=== PATIENT | female | born 1955 | race Caucasian/White ===

== ENCOUNTER 2021-09-09 13:10 | Inpatient (IN) ==
[2021-09-09 14:09] LABS: Albumin 3.1 G/DL (3.4-5.0); Bilirubin,Total 0.6 MG/DL (0.20-1.00); Calcium 9.7 MG/DL (8.5-10.1); Total Protein 7.8 G/DL (6.4-8.2)
[2021-09-09 14:11] LABS: Basophils % 0.5 % (0.0-0.8); Eosinophils # 0.1 10*3/uL (0.0-0.87); Eosinophils % 1.2 % (0.00-10.9); Hematocrit 52.5 VOL% (35.7-47.0); Hemoglobin 15.7 GM/DL (12.0-16.0); Immature Granulocytes % 0.5 %; Immature Granulocytes Absolute 0.04 #; Lymphocytes # 1.7 10*3/uL (1.4-4.0); Mean Corpuscular HGB Conc 29.9 GM/DL (32-36); Mean Corpuscular Volume 98.3 FL (87-102); Mean Platelet Volume 11.5 FL (9.6-12.0); Monocytes % 12.6 % (1.7-12.7); NRBC # 0.03 10*3/uL; Neutrophils % 62.2 % (38.7-73.9); Platelet Count 346 T/CUMM (130-400); Red Blood Count 5.34 MC/CUMM (3.8-5.5); Red Cell Distribution Width 15.5 % (9.3-17.3); White Blood Count 7.4 T/CUMM (4-12)
[2021-09-09] MEDS ORDERED: ONDANSETRON 4 MG/2 ML VIAL IV ONE (14:21)
[2021-09-09] MEDS ORDERED: HYDROmorphone 2 MG/1 ML VIAL IV STA (14:21)
[2021-09-09 14:53] LABS: Anisocytosis 1+; Atypical Lymphocytes 1+; Eosinophils 1 % (0-10); Hypochromasia Slight; Lymphocytes 23 % (20-55); Macrocytosis 1+; Platelet Estimate Normal; Polychromasia 1+; Segmented Neutrophils 70 % (50-85); Total Cells Counted 100
[2021-09-09] MEDS ORDERED: hydrALAZINE 20 MG/1 ML VIAL IV STA (15:02)
[2021-09-09] MEDS ORDERED: NALOXONE 0.4 MG/ML VIAL ONE (15:35)
[2021-09-09] MEDS ORDERED: NALOXONE 0.4 MG/ML VIAL IV STA (15:35)
[2021-09-09] MEDS ORDERED: PIPERACILLIN/TAZOBACTAM 3,375 MG in SODIUM CHLORIDE 0.9% 100 ML IV STA ×2 (15:42→15:45)
[2021-09-09 16:09] LABS: ABG Base Excess 10.5 MMOL/L (-2.5-2.5); ABG HCO3 44.8 MMOL/L (20-26); ABG Oxygen Saturation 93.5 % (95-100); ABG PO2 85.4 MM HG (80-95); ABG TCO2 48.5 MMOL/L (23-27)
[2021-09-09] MEDS ORDERED: amLODIPine 5 MG TABLET PO STA (16:20)
[2021-09-09] MEDS ORDERED: FUROSEMIDE 40 MG/4 ML VIAL IM STA (16:21)
[2021-09-09] MEDS ORDERED: ONDANSETRON 4 MG/2 ML VIAL IV PRN (16:22)
[2021-09-09] MEDS ORDERED: guaiFENesin/DM ER 600-30 MG TABLET PO PRN (16:22)
[2021-09-09] MEDS ORDERED: GLUCAGON 1 MG VIAL IM PRN ×2 (16:22)
[2021-09-09] MEDS ORDERED: DEXTROSE 50% 25 GM/50 ML VIAL IV PRN (16:22)
[2021-09-09] MEDS ORDERED: DOCUSATE SODIUM 100 MG CAPSULE PO PRN (16:22)
[2021-09-09] MEDS ORDERED: hydrALAZINE 20 MG/1 ML VIAL IV PRN (16:22)
[2021-09-09] MEDS ORDERED: VANCOMYCIN INJ 1,000 MG in SODIUM CHLORIDE 0.9% 250 ML IV SCH (16:30)
[2021-09-09] MEDS ORDERED: DEXTROSE 50% 25 GM/50 ML SYRINGE IV PRN (16:32)
[2021-09-09] MEDS: INSULIN LISPRO 100 UNIT/ML SUBCUT SCH ×2 (16:55→23:52)
[2021-09-09] MEDS ORDERED: FUROSEMIDE 40 MG/4 ML VIAL IV STA (17:03)
[2021-09-09 17:32] LABS: ABG HCO3 42.2 MMOL/L (20-26); ABG Oxygen Saturation 96.7 % (95-100); ABG PH 7.255 (7.35-7.45); ABG PO2 111.9 MM HG (80-95); ABG TCO2 45.1 MMOL/L (23-27)
[2021-09-09 17:35] LABS: ABG PCO2 97.2 MM HG (35-48)
[2021-09-09] MEDS ORDERED: VANCOMYCIN INJ 2,000 MG in SODIUM CHLORIDE 0.9% 250 ML IV SCH (18:00)
[2021-09-09] MEDS: ENOXAPARIN 40 MG/0.4 ML SYRINGE SUBCUT SCH (19:46)
[2021-09-09] MEDS: ALBUTEROL 2.5 MG/3 ML NEB RESP TX SCH (21:13)
[2021-09-09 21:28] LABS: ABG Base Excess 10.4 MMOL/L (-2.5-2.5); ABG Oxygen Saturation 93.1 % (95-100); ABG PO2 84.8 MM HG (80-95); ABG TCO2 42.9 MMOL/L (23-27)
[2021-09-09] MEDS ORDERED: ETOMIDATE 20 MG/10 ML VIAL IV ONE ×2 (21:44→22:23)
[2021-09-09] MEDS ORDERED: ROCURONIUM 100 MG/10 ML VIAL IV ONE ×2 (21:44→22:23)
[2021-09-09 23:30] LABS: ABG Base Excess 14.4 MMOL/L (-2.5-2.5); ABG HCO3 38.4 MMOL/L (20-26); ABG Oxygen Saturation 97.2 % (95-100); ABG PCO2 50.5 MM HG (35-48); ABG PH 7.512 (7.35-7.45); ABG TCO2 33.5 MMOL/L (23-27)
[2021-09-09] MEDS: SIMVASTATIN 20 MG TABLET PO SCH (23:31)
[2021-09-10] MEDS: ALBUTEROL 2.5 MG/3 ML NEB RESP TX SCH ×4 (00:38→19:20)
[2021-09-10 01:13] LABS: Bilirubin,Urine Negative (Negative); Blood, Urine Small mg/dL (Negative); Glucose,Urine (UA) 50 mg/dL (Negative); Hyaline Casts,Urine 4 /LPF (0-3); Ketones,Urine Negative (Negative); Nitrite,Urine Negative (Negative); Protein,Urine 30 MG/DL; RBC,Urine 1 /HPF (0-4); Squamous Epithelial Cell,Urine Occasional /HPF (0-10); Urine Appearance CLEAR (Clear); Urine Color Straw (Yellow); Urine Specific Gravity 1.013 (1.001-1.035); Urine Urobilinogen < 2.0 EU/DL (<2.0)
[2021-09-10] MEDS: PIPERACILLIN/TAZOBACTAM 3,375 MG in SODIUM CHLORIDE 0.9% 100 ML IV SCH ×3 (01:26→16:39)
[2021-09-10] MEDS: fentaNYL INJ 1,250 MCG in SODIUM CHLORIDE 0.9% 225 ML IV PRN (01:28)
[2021-09-10 03:59] LABS: ABG Base Excess 16.2 MMOL/L (-2.5-2.5); ABG HCO3 40.2 MMOL/L (20-26); ABG Oxygen Saturation 94.9 % (95-100); ABG PCO2 48.5 MM HG (35-48); ABG PH 7.543 (7.35-7.45); ABG PO2 64.9 MM HG (80-95); ABG TCO2 35.1 MMOL/L (23-27)
[2021-09-10] MEDS: LEVOTHYROXINE 75 MCG TABLET PO SCH (06:16)
[2021-09-10 06:36] LABS: Basophils % 0.3 % (0.0-0.8); Eosinophils % 0.1 % (0.00-10.9); Hematocrit 44.2 VOL% (35.7-47.0); Immature Granulocytes % 0.6 %; Immature Granulocytes Absolute 0.06 #; Lymphocytes # 1.3 10*3/uL (1.4-4.0); Lymphocytes % 13.3 % (21.3-54.2); Mean Corpuscular HGB Conc 29.9 GM/DL (32-36); Mean Corpuscular Volume 98.7 FL (87-102); Mean Platelet Volume 11.1 FL (9.6-12.0); Monocytes % 15.6 % (1.7-12.7); NRBC # 0.02 10*3/uL; Neutrophils % 70.1 % (38.7-73.9); Platelet Count 284 T/CUMM (130-400); Red Blood Count 4.48 MC/CUMM (3.8-5.5); White Blood Count 9.7 T/CUMM (4-12)
[2021-09-10 06:37] LABS: Hemoglobin 13.2 GM/DL (12.0-16.0)
[2021-09-10 06:44] LABS: Albumin 2.1 G/DL (3.4-5.0); Bilirubin,Total 0.9 MG/DL (0.20-1.00); Calcium 7.9 MG/DL (8.5-10.1); Osmolality,Calculated 291.7 MOS/KG (273-304); Potassium 3.2 MMOL/L (3.5-5.1); Risk Ratio 2.86; Thyroid Stimulating Hormone 6.05 uIU/ml (0.358-3.74); Total Protein 5.9 G/DL (6.4-8.2)
[2021-09-10 06:54] LABS: Hypochromasia 1+; Lymphocytes 15 % (20-55); Nucleated Red Blood Cells 1 (0-5); Polychromasia Slight; Segmented Neutrophils 71 % (50-85); Target Cells Slight; Total Cells Counted 100
[2021-09-10 06:55] LABS: Macrocytosis Slight; Platelet Estimate Normal
[2021-09-10] MEDS: INSULIN LISPRO 100 UNIT/ML SUBCUT SCH ×4 (07:49→17:15)
[2021-09-10] MEDS: ASPIRIN 325 MG TABLET PER TUBE SCH (08:30)
[2021-09-10] MEDS: POTASSIUM CHLORIDE 20 MEQ PACK PER TUBE SCH ×3 (08:30→16:39)
[2021-09-10] MEDS: CETIRIZINE 10 MG TABLET PO SCH (08:30)
[2021-09-10] MEDS: PANTOPRAZOLE 40 MG VIAL IV SCH (08:31)
[2021-09-10] MEDS: FUROSEMIDE 40 MG/4 ML VIAL IV SCH (08:31)
[2021-09-10] MEDS: amLODIPine 10 MG TABLET PO SCH (08:31)
[2021-09-10] MEDS ORDERED: PANTOPRAZOLE 40 MG TABLET PO SCH (09:00)
[2021-09-10] MEDS ORDERED: ASPIRIN EC 81 MG TABLET PO SCH (09:00)
[2021-09-10] MEDS ORDERED: SPIRONOLACTONE 100 MG TABLET PO SCH (09:00)
[2021-09-10 09:10] LABS: ABG Base Excess 16.8 MMOL/L (-2.5-2.5); ABG HCO3 40.9 MMOL/L (20-26); ABG Oxygen Saturation 96.2 % (95-100); ABG PH 7.445 (7.35-7.45); ABG PO2 80.5 MM HG (80-95); ABG TCO2 38.8 MMOL/L (23-27); Allen Test Positive; Pt O2 Delivery Device Ventilator
[2021-09-10 12:57] LABS: ABG PCO2 120.1 MM HG (35-48)
[2021-09-10] MEDS: methylPREDNISolone SOD SUC 40 MG/1 ML VIAL IV SCH (13:45)
[2021-09-10] MEDS: VANCOMYCIN INJ 2,000 MG in SODIUM CHLORIDE 0.9% 500 ML IV SCH (14:30)
[2021-09-10] MEDS: ENOXAPARIN 40 MG/0.4 ML SYRINGE SUBCUT SCH (16:39)
[2021-09-10] MEDS: SIMVASTATIN 20 MG TABLET PO SCH (20:44)
[2021-09-11] MEDS: VANCOMYCIN INJ 2,000 MG in SODIUM CHLORIDE 0.9% 500 ML IV SCH ×2 (00:16→11:59)
[2021-09-11] MEDS: INSULIN LISPRO 100 UNIT/ML SUBCUT SCH ×4 (00:16→18:12)
[2021-09-11] MEDS: PIPERACILLIN/TAZOBACTAM 3,375 MG in SODIUM CHLORIDE 0.9% 100 ML IV SCH ×2 (00:17→08:03)
[2021-09-11] MEDS: ALBUTEROL 2.5 MG/3 ML NEB RESP TX SCH ×4 (00:54→19:17)
[2021-09-11] MEDS: methylPREDNISolone SOD SUC 40 MG/1 ML VIAL IV SCH ×2 (02:19→14:15)
[2021-09-11 04:15] LABS: ABG HCO3 36.9 MMOL/L (20-26); ABG Oxygen Saturation 97.8 % (95-100); ABG PCO2 65.3 MM HG (35-48); ABG PH 7.409 (7.35-7.45); ABG TCO2 35.8 MMOL/L (23-27)
[2021-09-11 05:09] LABS: Basophils % 0.2 % (0.0-0.8); Hematocrit 44.4 VOL% (35.7-47.0); Hemoglobin 13.5 GM/DL (12.0-16.0); Immature Granulocytes % 0.7 %; Immature Granulocytes Absolute 0.08 #; Lymphocytes # 1.4 10*3/uL (1.4-4.0); Lymphocytes % 12.7 % (21.3-54.2); Mean Corpuscular HGB Conc 30.4 GM/DL (32-36); Mean Corpuscular Volume 96.5 FL (87-102); Mean Platelet Volume 11.3 FL (9.6-12.0); Monocytes % 12.5 % (1.7-12.7); Neutrophils % 73.9 % (38.7-73.9); Platelet Count 327 T/CUMM (130-400); Red Cell Distribution Width 15.3 % (9.3-17.3); White Blood Count 10.7 T/CUMM (4-12)
[2021-09-11 05:17] LABS: Calcium 8.9 MG/DL (8.5-10.1); Osmolality,Calculated 287.1 MOS/KG (273-304); Potassium 3.9 MMOL/L (3.5-5.1)
[2021-09-11] MEDS: LEVOTHYROXINE 75 MCG TABLET PO SCH (06:08)
[2021-09-11] MEDS: fentaNYL INJ 1,250 MCG in SODIUM CHLORIDE 0.9% 225 ML IV PRN (06:08)
[2021-09-11] MEDS: amLODIPine 10 MG TABLET PO SCH (08:26)
[2021-09-11] MEDS: CETIRIZINE 10 MG TABLET PO SCH (08:26)
[2021-09-11] MEDS: ASPIRIN 325 MG TABLET PER TUBE SCH (08:26)
[2021-09-11] MEDS: FUROSEMIDE 40 MG/4 ML VIAL IV SCH (08:26)
[2021-09-11] MEDS: PANTOPRAZOLE 40 MG VIAL IV SCH (08:28)
[2021-09-11] MEDS: CIPROFLOXACIN INJ 400 MG/200 ML PREMIX IV SCH (12:54)
[2021-09-11] MEDS ORDERED: SKIN HEALING OINT (AQUAPHOR) 50 GM TUBE TOP PRN (15:36)
[2021-09-11] MEDS: ENOXAPARIN 40 MG/0.4 ML SYRINGE SUBCUT SCH (17:08)
[2021-09-11] MEDS: SIMVASTATIN 20 MG TABLET PO SCH (20:59)
[2021-09-11] MEDS: MENTHOL/ZINC OXIDE OINT 71 GM JAR TOP SCH (21:02)
[2021-09-12] MEDS: CIPROFLOXACIN INJ 400 MG/200 ML PREMIX IV SCH ×2 (00:22→11:54)
[2021-09-12] MEDS: INSULIN LISPRO 100 UNIT/ML SUBCUT SCH ×4 (00:22→17:48)
[2021-09-12] MEDS: methylPREDNISolone SOD SUC 40 MG/1 ML VIAL IV SCH ×2 (02:47→13:47)
[2021-09-12 03:46] LABS: ABG Base Excess 12.8 MMOL/L (-2.5-2.5); ABG HCO3 36.6 MMOL/L (20-26); ABG Oxygen Saturation 95.6 % (95-100); ABG PCO2 54.1 MM HG (35-48); ABG PH 7.467 (7.35-7.45); ABG PO2 78.3 MM HG (80-95); ABG TCO2 33.9 MMOL/L (23-27)
[2021-09-12 06:45] LABS: Basophils % 0.1 % (0.0-0.8); Hematocrit 45.3 VOL% (35.7-47.0); Immature Granulocytes % 0.6 %; Immature Granulocytes Absolute 0.07 #; Lymphocytes # 0.6 10*3/uL (1.4-4.0); Lymphocytes % 5.1 % (21.3-54.2); Mean Corpuscular HGB Conc 30.9 GM/DL (32-36); Mean Corpuscular Volume 94.4 FL (87-102); Monocytes % 8.5 % (1.7-12.7); Neutrophils % 85.7 % (38.7-73.9); Platelet Count 347 T/CUMM (130-400); White Blood Count 11.2 T/CUMM (4-12)
[2021-09-12] MEDS: LEVOTHYROXINE 75 MCG TABLET PO SCH (06:49)
[2021-09-12 07:13] LABS: Calcium 8.9 MG/DL (8.5-10.1); Osmolality,Calculated 296.8 MOS/KG (273-304); Potassium 3.7 MMOL/L (3.5-5.1)
[2021-09-12] MEDS: ALBUTEROL 2.5 MG/3 ML NEB RESP TX SCH ×4 (07:26→19:50)
[2021-09-12] MEDS: MENTHOL/ZINC OXIDE OINT 71 GM JAR TOP SCH ×2 (08:14→23:43)
[2021-09-12] MEDS: ASPIRIN 325 MG TABLET PER TUBE SCH (08:14)
[2021-09-12] MEDS: FUROSEMIDE 40 MG/4 ML VIAL IV SCH (08:14)
[2021-09-12] MEDS: amLODIPine 10 MG TABLET PO SCH (08:14)
[2021-09-12] MEDS: PANTOPRAZOLE 40 MG VIAL IV SCH (08:14)
[2021-09-12] MEDS: CETIRIZINE 10 MG TABLET PO SCH (08:14)
[2021-09-12] MEDS ORDERED: INFLUENZA VIRUS VACCINE 0.5 ML SYRINGE IM ONE (09:00)
[2021-09-12 10:54] LABS: ABG Base Excess 11.9 MMOL/L (-2.5-2.5); ABG HCO3 35.6 MMOL/L (20-26); ABG Oxygen Saturation 95.1 % (95-100); ABG PCO2 66.1 MM HG (35-48); ABG PH 7.395 (7.35-7.45); ABG PO2 82.5 MM HG (80-95); ABG TCO2 34.8 MMOL/L (23-27)
[2021-09-12] MEDS ORDERED: busPIRone 15 MG TABLET PO PRN (12:41)
[2021-09-12] MEDS: ENOXAPARIN 40 MG/0.4 ML SYRINGE SUBCUT SCH (16:33)
[2021-09-12] MEDS ORDERED: AMITRIPTYLINE 10 MG TABLET PO SCH (21:00)
[2021-09-12] MEDS: SIMVASTATIN 20 MG TABLET PO SCH (21:23)
[2021-09-13] MEDS: INSULIN LISPRO 100 UNIT/ML SUBCUT SCH ×3 (00:42→12:29)
[2021-09-13] MEDS: CIPROFLOXACIN INJ 400 MG/200 ML PREMIX IV SCH ×2 (00:43→13:56)
[2021-09-13] MEDS: methylPREDNISolone SOD SUC 40 MG/1 ML VIAL IV SCH ×2 (02:40→13:56)
[2021-09-13] MEDS: ALBUTEROL 2.5 MG/3 ML NEB RESP TX SCH ×2 (02:50→07:57)
[2021-09-13] MEDS: LEVOTHYROXINE 75 MCG TABLET PO SCH (05:49)
[2021-09-13 05:56] LABS: Calcium 9.2 MG/DL (8.5-10.1); Osmolality,Calculated 281.7 MOS/KG (273-304); Potassium 5.1 MMOL/L (3.5-5.1)
[2021-09-13 07:22] LABS: Basophils % 0.1 % (0.0-0.8); Hematocrit 48.5 VOL% (35.7-47.0); Hemoglobin 14.4 GM/DL (12.0-16.0); Immature Granulocytes % 0.4 %; Immature Granulocytes Absolute 0.05 #; Lymphocytes # 1.3 10*3/uL (1.4-4.0); Lymphocytes % 11.1 % (21.3-54.2); Mean Corpuscular HGB Conc 29.7 GM/DL (32-36); Mean Corpuscular Volume 98.4 FL (87-102); Mean Platelet Volume 11.2 FL (9.6-12.0); Monocytes % 10.9 % (1.7-12.7); Neutrophils % 77.5 % (38.7-73.9); Platelet Count 316 T/CUMM (130-400); Red Blood Count 4.93 MC/CUMM (3.8-5.5); Red Cell Distribution Width 15.1 % (9.3-17.3); White Blood Count 11.3 T/CUMM (4-12)
[2021-09-13] MEDS: CETIRIZINE 10 MG TABLET PO SCH (09:38)
[2021-09-13] MEDS: ASPIRIN 325 MG TABLET PER TUBE SCH (09:38)
[2021-09-13] MEDS: PANTOPRAZOLE 40 MG VIAL IV SCH (09:38)
[2021-09-13] MEDS: amLODIPine 10 MG TABLET PO SCH (09:38)
[2021-09-13] MEDS: FUROSEMIDE 40 MG/4 ML VIAL IV SCH (09:41)
[2021-09-13] MEDS: MENTHOL/ZINC OXIDE OINT 71 GM JAR TOP SCH (09:45)
[2021-09-13 16:51] VITALS: BP 139/77
[2021-09-13] MEDS: ENOXAPARIN 40 MG/0.4 ML SYRINGE SUBCUT SCH (17:18)
== END 2021-09-13 17:55 | disposition home health service (06) | DRG 208 ==
LOC: EDUNIT# → N.ED 13:10 → SUATTDRO 16:22 → N.EDINP 16:22 → N.TELES 19:11 → N.ICU 22:02
PROVIDERS: ADMIT Internal Medicine; ATTEND Internal Medicine

== ENCOUNTER 2021-09-17 17:47 | Inpatient (IN) ==
[2021-09-17] MEDS ORDERED: ALBUTEROL/IPRATROPIUM 3 ML NEB RESP TX STA (18:16)
[2021-09-17] MEDS ORDERED: ONDANSETRON 4 MG/2 ML VIAL IV STA (18:16)
[2021-09-17] MEDS ORDERED: FUROSEMIDE 100 MG/10 ML VIAL IV STA (18:16)
[2021-09-17] MEDS ORDERED: methylPREDNISolone SOD SUC 125 MG/2 ML VIAL IV STA (18:16)
[2021-09-17] MEDS ORDERED: MORPHINE 2 MG/1 ML SYRINGE IV STA (18:16)
[2021-09-17 19:12] LABS: INR 1.1; PT Patient Result 11.7 SECS (10.5-12.0)
[2021-09-17 19:17] LABS: Albumin 3.2 G/DL (3.4-5.0); Bilirubin,Total 0.9 MG/DL (0.20-1.00); Calcium 10.1 MG/DL (8.5-10.1); Potassium 5.3 MMOL/L (3.5-5.1); Total Protein 8.1 G/DL (6.4-8.2)
[2021-09-17 19:19] LABS: Basophils % 0.2 % (0.0-0.8); Eosinophils % 0.2 % (0.00-10.9); Immature Granulocytes Absolute 0.08 #; Lymphocytes # 1.2 10*3/uL (1.4-4.0); Lymphocytes % 15.1 % (21.3-54.2); Mean Corpuscular HGB Conc 28.5 GM/DL (32-36); Mean Corpuscular Volume 101.1 FL (87-102); Mean Platelet Volume 11.7 FL (9.6-12.0); Neutrophils % 76.5 % (38.7-73.9); Platelet Count 289 T/CUMM (130-400); Red Blood Count 5.34 MC/CUMM (3.8-5.5); Red Cell Distribution Width 14.6 % (9.3-17.3); White Blood Count 8.1 T/CUMM (4-12)
[2021-09-17 19:20] LABS: Hemoglobin 15.4 GM/DL (12.0-16.0)
[2021-09-17 20:15] LABS: ABG HCO3 34.7 MMOL/L (20-26); ABG Oxygen Saturation 95.9 % (95-100); ABG PH 7.221 (7.35-7.45); ABG PO2 92.1 MM HG (80-95); ABG TCO2 40.4 MMOL/L (23-27)
[2021-09-17 21:22] LABS: ABG Base Excess 12.3 MMOL/L (-2.5-2.5); ABG HCO3 36.1 MMOL/L (20-26); ABG Oxygen Saturation 94.8 % (95-100); ABG PO2 85.8 MM HG (80-95); ABG TCO2 43.8 MMOL/L (23-27)
[2021-09-17 21:27] LABS: ABG PH 7.184 (7.35-7.45)
[2021-09-17] MEDS ORDERED: ACETAMINOPHEN 325 MG TABLET PER TUBE PRN (21:34)
[2021-09-17] MEDS ORDERED: ONDANSETRON 4 MG/2 ML VIAL IV PRN (21:34)
[2021-09-17] MEDS ORDERED: VECURONIUM 10 MG VIAL IV ONE (21:44)
[2021-09-17] MEDS ORDERED: ETOMIDATE 20 MG/10 ML VIAL IV ONE (21:44)
[2021-09-17] MEDS ORDERED: LEVOFLOXACIN INJ 750 MG/150 ML PREMIX IV SCH (22:00)
[2021-09-17 22:29] LABS: Bilirubin,Urine Negative (Negative); Blood, Urine Small mg/dL (Negative); Glucose,Urine (UA) Negative (Negative); Hyaline Casts,Urine 41 /LPF (0-3); Ketones,Urine Negative (Negative); Mucus,Urine Occasional /LPF (Occasional); Nitrite,Urine Negative (Negative); Protein,Urine Negative; RBC,Urine 1 /HPF (0-4); Urine Appearance CLEAR (Clear); Urine Color Straw (Yellow); Urine Specific Gravity 1.006 (1.001-1.035); Urine Urobilinogen < 2.0 EU/DL (<2.0)
[2021-09-17] MEDS ORDERED: ETOMIDATE 20 MG/10 ML VIAL IV STA (22:43)
[2021-09-17] MEDS ORDERED: VECURONIUM 10 MG VIAL IV STA (22:45)
[2021-09-17] MEDS: LACTATED RINGERS 1,000 ML IV SCH (23:38)
[2021-09-17] MEDS: MIDAZOLAM 100 MG in SODIUM CHLORIDE 0.9% 80 ML IV PRN (23:38)
[2021-09-17 23:44] LABS: ABG Base Excess 15.7 MMOL/L (-2.5-2.5); ABG HCO3 39.8 MMOL/L (20-26); ABG Oxygen Saturation 98.6 % (95-100); ABG PH 7.395 (7.35-7.45); ABG TCO2 38.9 MMOL/L (23-27)
[2021-09-17 23:45] LABS: ABG PCO2 74.7 MM HG (35-48)
[2021-09-18] MEDS: ALBUTEROL 2.5 MG/3 ML NEB RESP TX SCH ×4 (01:18→19:08)
[2021-09-18] MEDS: ENOXAPARIN 40 MG/0.4 ML SYRINGE SUBCUT SCH ×2 (01:35→21:18)
[2021-09-18] MEDS: PANTOPRAZOLE 40 MG VIAL IV SCH ×2 (01:35→21:53)
[2021-09-18] MEDS: MEROPENEM 500 MG in SODIUM CHLORIDE 0.9% 100 ML IV SCH ×4 (03:33→21:47)
[2021-09-18 04:20] LABS: ABG Base Excess 17.4 MMOL/L (-2.5-2.5); ABG HCO3 41.7 MMOL/L (20-26); ABG Oxygen Saturation 99.2 % (95-100); ABG PCO2 48.4 MM HG (35-48); ABG PH 7.557 (7.35-7.45); ABG TCO2 36.1 MMOL/L (23-27)
[2021-09-18 05:39] LABS: Hematocrit 55.5 VOL% (35.7-47.0); Hemoglobin 14.9 GM/DL (12.0-16.0); Immature Granulocytes % 0.6 %; Immature Granulocytes Absolute 0.04 #; Lymphocytes # 0.4 10*3/uL (1.4-4.0); Lymphocytes % 6.4 % (21.3-54.2); Mean Corpuscular HGB Conc 26.8 GM/DL (32-36); Mean Corpuscular Volume 114.2 FL (87-102); Mean Platelet Volume 11.1 FL (9.6-12.0); Monocytes % 4.8 % (1.7-12.7); Neutrophils % 88.2 % (38.7-73.9); Platelet Count 297 T/CUMM (130-400); Red Blood Count 4.86 MC/CUMM (3.8-5.5); White Blood Count 6.5 T/CUMM (4-12)
[2021-09-18] MEDS: LEVOFLOXACIN INJ 750 MG/150 ML PREMIX IV SCH (05:39)
[2021-09-18 05:45] LABS: Albumin 2.7 G/DL (3.4-5.0); Bilirubin,Total 0.9 MG/DL (0.20-1.00); Calcium 10.2 MG/DL (8.5-10.1); High Sensitive Troponin I* 18.2 ng/L (0-54); Osmolality,Calculated 286.5 MOS/KG (273-304); Potassium 4.1 MMOL/L (3.5-5.1); Total Protein 7.2 G/DL (6.4-8.2)
[2021-09-18 05:48] LABS: Risk Ratio 2.21; Thyroid Stimulating Hormone 2.29 uIU/ml (0.358-3.74); VLDL Cholesterol 17.4 MG/DL
[2021-09-18 05:56] LABS: Hypochromia 1+; Macrocytosis Slight
[2021-09-18] MEDS: LEVOTHYROXINE 150 MCG TABLET PER TUBE SCH (05:56)
[2021-09-18 05:57] LABS: Stomatocytes Slight
[2021-09-18] MEDS ORDERED: GLUCAGON 1 MG VIAL IM PRN ×2 (08:15→12:34)
[2021-09-18] MEDS ORDERED: DEXTROSE 50% 25 GM/50 ML SYRINGE IV PRN (08:19)
[2021-09-18] MEDS: LACTATED RINGERS 1,000 ML IV SCH ×2 (09:40→19:09)
[2021-09-18] MEDS: amLODIPine 10 MG TABLET PER TUBE SCH (10:27)
[2021-09-18] MEDS: busPIRone 15 MG TABLET PER TUBE SCH ×3 (10:27→21:17)
[2021-09-18] MEDS: PREGABALIN 100 MG CAPSULE PO SCH ×3 (10:27→21:30)
[2021-09-18] MEDS: methylPREDNISolone SOD SUC 40 MG/1 ML VIAL IV SCH ×2 (10:27→21:18)
[2021-09-18] MEDS ORDERED: DEXTROSE 50% 25 GM/50 ML VIAL IV PRN (12:34)
[2021-09-18] MEDS: INSULIN LISPRO 100 UNIT/ML SUBCUT SCH ×3 (12:57→23:37)
[2021-09-18] MEDS: LACTULOSE 20 GM/30 ML UDCUP PO SCH ×2 (15:00→21:17)
[2021-09-18] MEDS ORDERED: SKIN HEALING OINT (AQUAPHOR) 50 GM TUBE TOP PRN (15:16)
[2021-09-18] MEDS: MIDAZOLAM 100 MG in SODIUM CHLORIDE 0.9% 80 ML IV PRN (18:00)
[2021-09-19] MEDS: cloNIDine 0.1 MG TABLET PO PRN
[2021-09-19] MEDS: MEROPENEM 500 MG in SODIUM CHLORIDE 0.9% 100 ML IV SCH ×4 (04:10→21:18)
[2021-09-19 04:11] LABS: Basophils % 0.1 % (0.0-0.8); Hematocrit 49.2 VOL% (35.7-47.0); Hemoglobin 15.3 GM/DL (12.0-16.0); Immature Granulocytes % 0.6 %; Immature Granulocytes Absolute 0.05 #; Lymphocytes # 0.4 10*3/uL (1.4-4.0); Lymphocytes % 4.7 % (21.3-54.2); Mean Corpuscular HGB Conc 31.1 GM/DL (32-36); Mean Corpuscular Volume 93.2 FL (87-102); Mean Platelet Volume 11.1 FL (9.6-12.0); Monocytes % 7.3 % (1.7-12.7); Neutrophils % 87.3 % (38.7-73.9); Platelet Count 300 T/CUMM (130-400); Red Blood Count 5.28 MC/CUMM (3.8-5.5); Red Cell Distribution Width 14.6 % (9.3-17.3)
[2021-09-19 04:25] LABS: ABG Base Excess 11.8 MMOL/L (-2.5-2.5); ABG HCO3 35.6 MMOL/L (20-26); ABG Oxygen Saturation 97.8 % (95-100); ABG PCO2 46.8 MM HG (35-48); ABG PH 7.506 (7.35-7.45); ABG PO2 92.5 MM HG (80-95)
[2021-09-19 04:30] LABS: Band Neutrophils 1 % (0-10); Lymphocytes 5 % (20-55); Platelet Estimate Adequate; Segmented Neutrophils 92 % (50-85); Total Cells Counted 100
[2021-09-19 04:31] LABS: Calcium 9.3 MG/DL (8.5-10.1); Osmolality,Calculated 286.4 MOS/KG (273-304); Potassium 3.7 MMOL/L (3.5-5.1)
[2021-09-19] MEDS: LEVOTHYROXINE 150 MCG TABLET PER TUBE SCH (05:56)
[2021-09-19] MEDS: LEVOFLOXACIN INJ 750 MG/150 ML PREMIX IV SCH (05:56)
[2021-09-19] MEDS: INSULIN LISPRO 100 UNIT/ML SUBCUT SCH ×4 (05:56→23:39)
[2021-09-19] MEDS: ALBUTEROL 2.5 MG/3 ML NEB RESP TX SCH ×4 (07:48→19:42)
[2021-09-19] MEDS: amLODIPine 10 MG TABLET PER TUBE SCH (08:47)
[2021-09-19] MEDS: methylPREDNISolone SOD SUC 40 MG/1 ML VIAL IV SCH ×2 (08:47→21:18)
[2021-09-19] MEDS: LACTULOSE 20 GM/30 ML UDCUP PO SCH (08:47)
[2021-09-19] MEDS: busPIRone 15 MG TABLET PER TUBE SCH ×3 (08:48→21:18)
[2021-09-19] MEDS: PREGABALIN 100 MG CAPSULE PO SCH ×3 (09:16→22:29)
[2021-09-19] MEDS: MIDAZOLAM 100 MG in SODIUM CHLORIDE 0.9% 80 ML IV PRN (16:01)
[2021-09-19] MEDS: PANTOPRAZOLE 40 MG VIAL IV SCH (21:17)
[2021-09-19] MEDS: ENOXAPARIN 40 MG/0.4 ML SYRINGE SUBCUT SCH (21:18)
[2021-09-20] MEDS: ALBUTEROL 2.5 MG/3 ML NEB RESP TX SCH ×4 (02:00→19:00)
[2021-09-20 04:12] LABS: ABG Base Excess 9.7 MMOL/L (-2.5-2.5); ABG HCO3 33.3 MMOL/L (20-26); ABG PO2 81.4 MM HG (80-95); ABG TCO2 33.2 MMOL/L (23-27)
[2021-09-20 04:34] LABS: ABG PCO2 69.1 MM HG (35-48)
[2021-09-20] MEDS: MEROPENEM 500 MG in SODIUM CHLORIDE 0.9% 100 ML IV SCH ×4 (04:59→21:07)
[2021-09-20 05:13] LABS: Basophils % 0.1 % (0.0-0.8); Hematocrit 49.6 VOL% (35.7-47.0); Hemoglobin 15.3 GM/DL (12.0-16.0); Immature Granulocytes % 0.5 %; Immature Granulocytes Absolute 0.04 #; Lymphocytes # 0.4 10*3/uL (1.4-4.0); Mean Corpuscular HGB Conc 30.8 GM/DL (32-36); Mean Corpuscular Volume 95.2 FL (87-102); Mean Platelet Volume 11.2 FL (9.6-12.0); Monocytes % 7.8 % (1.7-12.7); Neutrophils % 86.6 % (38.7-73.9); Platelet Count 274 T/CUMM (130-400); Red Blood Count 5.21 MC/CUMM (3.8-5.5); Red Cell Distribution Width 15.1 % (9.3-17.3); White Blood Count 7.7 T/CUMM (4-12)
[2021-09-20] MEDS: LEVOFLOXACIN INJ 750 MG/150 ML PREMIX IV SCH (05:36)
[2021-09-20 05:42] LABS: Osmolality,Calculated 288.3 MOS/KG (273-304); Potassium 4.1 MMOL/L (3.5-5.1)
[2021-09-20] MEDS: INSULIN LISPRO 100 UNIT/ML SUBCUT SCH ×3 (06:02→18:18)
[2021-09-20] MEDS: LEVOTHYROXINE 150 MCG TABLET PER TUBE SCH (06:02)
[2021-09-20] MEDS: busPIRone 15 MG TABLET PER TUBE SCH ×3 (08:39→21:06)
[2021-09-20] MEDS: PREGABALIN 100 MG CAPSULE PO SCH ×3 (08:40→21:07)
[2021-09-20] MEDS: methylPREDNISolone SOD SUC 40 MG/1 ML VIAL IV SCH ×2 (08:40→21:07)
[2021-09-20] MEDS: amLODIPine 10 MG TABLET PER TUBE SCH (08:40)
[2021-09-20] MEDS ORDERED: LACTULOSE 20 GM/30 ML UDCUP PO SCH (09:00)
[2021-09-20] MEDS: MIDAZOLAM 100 MG in SODIUM CHLORIDE 0.9% 80 ML IV PRN (13:18)
[2021-09-20] MEDS: DEXMEDETOMIDINE 200 MCG in SODIUM CHLORIDE 0.9% 48 ML IV PRN ×2 (15:19→21:46)
[2021-09-20] MEDS: ENOXAPARIN 40 MG/0.4 ML SYRINGE SUBCUT SCH (21:07)
[2021-09-20] MEDS: PANTOPRAZOLE 40 MG VIAL IV SCH (21:07)
[2021-09-21] MEDS: ALBUTEROL 2.5 MG/3 ML NEB RESP TX SCH ×4 (00:11→19:55)
[2021-09-21] MEDS: INSULIN LISPRO 100 UNIT/ML SUBCUT SCH ×4 (00:46→18:16)
[2021-09-21 04:15] LABS: ABG Base Excess 11.7 MMOL/L (-2.5-2.5); ABG HCO3 39.3 MMOL/L (20-26); ABG Oxygen Saturation 95.5 % (95-100); ABG PCO2 61.6 MM HG (35-48); ABG PH 7.423 (7.35-7.45); ABG PO2 77.8 MM HG (80-95); ABG TCO2 41.2 MMOL/L (23-27); Allen Test Positive; Pt O2 Delivery Device Ventilator
[2021-09-21] MEDS: MEROPENEM 500 MG in SODIUM CHLORIDE 0.9% 100 ML IV SCH ×4 (04:30→22:17)
[2021-09-21 04:38] LABS: Hematocrit 48.8 VOL% (35.7-47.0); Immature Granulocytes % 0.5 %; Immature Granulocytes Absolute 0.03 #; Lymphocytes # 0.4 10*3/uL (1.4-4.0); Lymphocytes % 6.4 % (21.3-54.2); Mean Corpuscular HGB Conc 30.7 GM/DL (32-36); Mean Corpuscular Volume 93.8 FL (87-102); Mean Platelet Volume 11.5 FL (9.6-12.0); Monocytes % 8.9 % (1.7-12.7); Neutrophils % 84.2 % (38.7-73.9); Platelet Count 227 T/CUMM (130-400); White Blood Count 6.4 T/CUMM (4-12)
[2021-09-21 05:05] LABS: Calcium 9.2 MG/DL (8.5-10.1); Potassium 4.4 MMOL/L (3.5-5.1)
[2021-09-21 05:12] LABS: Osmolality,Calculated 284.7 MOS/KG (273-304)
[2021-09-21] MEDS: LEVOFLOXACIN INJ 750 MG/150 ML PREMIX IV SCH (05:57)
[2021-09-21] MEDS: LEVOTHYROXINE 150 MCG TABLET PER TUBE SCH (05:58)
[2021-09-21] MEDS: DEXMEDETOMIDINE 200 MCG in SODIUM CHLORIDE 0.9% 48 ML IV PRN (06:07)
[2021-09-21] MEDS: busPIRone 15 MG TABLET PER TUBE SCH ×3 (11:44→22:00)
[2021-09-21] MEDS: PREGABALIN 100 MG CAPSULE PO SCH ×3 (11:45→22:07)
[2021-09-21] MEDS: methylPREDNISolone SOD SUC 40 MG/1 ML VIAL IV SCH ×2 (11:45→22:00)
[2021-09-21] MEDS: LACTULOSE 20 GM/30 ML UDCUP PER TUBE SCH (11:45)
[2021-09-21] MEDS: amLODIPine 10 MG TABLET PER TUBE SCH (11:45)
[2021-09-21 12:32] LABS: ABG Base Excess 11.6 MMOL/L (-2.5-2.5); ABG HCO3 40.3 MMOL/L (20-26); ABG Oxygen Saturation 95.8 % (95-100); ABG PH 7.381 (7.35-7.45); ABG PO2 83.2 MM HG (80-95); ABG TCO2 42.5 MMOL/L (23-27); Allen Test Positive; Pt O2 Delivery Device Ventilator
[2021-09-21 12:34] LABS: ABG PCO2 69.6 MM HG (35-48)
[2021-09-21] MEDS: DEXMEDETOMIDINE 400 MCG in SODIUM CHLORIDE 0.9% 96 ML IV PRN (14:21)
[2021-09-21] MEDS: ENOXAPARIN 40 MG/0.4 ML SYRINGE SUBCUT SCH (22:12)
[2021-09-21] MEDS: PANTOPRAZOLE 40 MG VIAL IV SCH (22:13)
[2021-09-22] MEDS: ALBUTEROL 2.5 MG/3 ML NEB RESP TX SCH ×4 (00:29→20:36)
[2021-09-22] MEDS: INSULIN LISPRO 100 UNIT/ML SUBCUT SCH ×4 (00:35→17:24)
[2021-09-22 04:39] LABS: Basophils % 0.2 % (0.0-0.8); Hematocrit 51.1 VOL% (35.7-47.0); Hemoglobin 15.7 GM/DL (12.0-16.0); Immature Granulocytes % 0.5 %; Immature Granulocytes Absolute 0.03 #; Lymphocytes # 0.4 10*3/uL (1.4-4.0); Mean Corpuscular HGB Conc 30.7 GM/DL (32-36); Mean Corpuscular Volume 94.8 FL (87-102); Monocytes % 5.9 % (1.7-12.7); Neutrophils % 86.4 % (38.7-73.9); Platelet Count 206 T/CUMM (130-400); Red Blood Count 5.39 MC/CUMM (3.8-5.5); Red Cell Distribution Width 14.8 % (9.3-17.3); White Blood Count 6.1 T/CUMM (4-12)
[2021-09-22 04:42] LABS: Calcium 9.2 MG/DL (8.5-10.1); Osmolality,Calculated 294.3 MOS/KG (273-304); Potassium 4.9 MMOL/L (3.5-5.1)
[2021-09-22 04:54] LABS: ABG Base Excess 11.2 MMOL/L (-2.5-2.5); ABG Oxygen Saturation 97.1 % (95-100); ABG PCO2 63.9 MM HG (35-48); ABG PH 7.403 (7.35-7.45); ABG PO2 91.4 MM HG (80-95); ABG TCO2 33.4 MMOL/L (23-27)
[2021-09-22] MEDS: DEXMEDETOMIDINE 400 MCG in SODIUM CHLORIDE 0.9% 96 ML IV PRN (05:41)
[2021-09-22] MEDS: MEROPENEM 500 MG in SODIUM CHLORIDE 0.9% 100 ML IV SCH ×4 (06:30→22:37)
[2021-09-22 07:00] LABS: Hypochromia 1+; Platelet Estimate Normal; Stomatocytes Slight
[2021-09-22] MEDS: LEVOFLOXACIN INJ 750 MG/150 ML PREMIX IV SCH (07:42)
[2021-09-22] MEDS: LEVOTHYROXINE 150 MCG TABLET PER TUBE SCH (07:43)
[2021-09-22] MEDS: busPIRone 15 MG TABLET PER TUBE SCH ×3 (08:46→23:10)
[2021-09-22] MEDS: LACTULOSE 20 GM/30 ML UDCUP PER TUBE SCH (08:46)
[2021-09-22] MEDS: amLODIPine 10 MG TABLET PER TUBE SCH (08:46)
[2021-09-22] MEDS: methylPREDNISolone SOD SUC 40 MG/1 ML VIAL IV SCH ×2 (08:47→22:28)
[2021-09-22] MEDS: PREGABALIN 100 MG CAPSULE PO SCH ×3 (08:49→23:09)
[2021-09-22 13:42] LABS: ABG Base Excess 10.6 MMOL/L (-2.5-2.5); ABG HCO3 34.3 MMOL/L (20-26); ABG Oxygen Saturation 94.4 % (95-100); ABG PCO2 67.7 MM HG (35-48); ABG PH 7.378 (7.35-7.45); ABG PO2 74.4 MM HG (80-95); ABG TCO2 33.6 MMOL/L (23-27); Allen Test Positive; Pt O2 Delivery Device Ventilator
[2021-09-22] MEDS: cloNIDine 0.1 MG TABLET PO PRN (14:48)
[2021-09-22] MEDS: MORPHINE 2 MG/1 ML SYRINGE IV PRN ×2 (15:15→23:21)
[2021-09-22] MEDS: DORNASE ALFA 2.5 MG/2.5 ML VIAL RESP TX SCH (20:36)
[2021-09-22] MEDS: PANTOPRAZOLE 40 MG VIAL IV SCH (22:35)
[2021-09-22] MEDS: ENOXAPARIN 40 MG/0.4 ML SYRINGE SUBCUT SCH (22:37)
[2021-09-23] MEDS: ALBUTEROL 2.5 MG/3 ML NEB RESP TX SCH ×4 (01:28→23:30)
[2021-09-23] MEDS: INSULIN LISPRO 100 UNIT/ML SUBCUT SCH ×5 (02:12→21:15)
[2021-09-23 04:41] LABS: ABG Base Excess 13.3 MMOL/L (-2.5-2.5); ABG HCO3 40.1 MMOL/L (20-26); ABG Oxygen Saturation 91.6 % (95-100); ABG PCO2 57.8 MM HG (35-48); ABG PH 7.459 (7.35-7.45); ABG PO2 58.8 MM HG (80-95); ABG TCO2 41.9 MMOL/L (23-27)
[2021-09-23 05:50] LABS: Basophils % 0.1 % (0.0-0.8); Hematocrit 47.5 VOL% (35.7-47.0); Hemoglobin 14.6 GM/DL (12.0-16.0); Immature Granulocytes % 0.4 %; Immature Granulocytes Absolute 0.03 #; Lymphocytes # 0.6 10*3/uL (1.4-4.0); Lymphocytes % 8.2 % (21.3-54.2); Mean Corpuscular HGB Conc 30.7 GM/DL (32-36); Mean Corpuscular Volume 94.2 FL (87-102); Mean Platelet Volume 12.4 FL (9.6-12.0); Monocytes % 3.4 % (1.7-12.7); Neutrophils % 87.9 % (38.7-73.9); Platelet Count 203 T/CUMM (130-400); Red Blood Count 5.04 MC/CUMM (3.8-5.5); Red Cell Distribution Width 14.6 % (9.3-17.3); White Blood Count 7.7 T/CUMM (4-12)
[2021-09-23 06:10] LABS: Calcium 9.3 MG/DL (8.5-10.1); Osmolality,Calculated 282.8 MOS/KG (273-304); Potassium 4.6 MMOL/L (3.5-5.1)
[2021-09-23] MEDS: MEROPENEM 500 MG in SODIUM CHLORIDE 0.9% 100 ML IV SCH ×4 (06:55→21:13)
[2021-09-23] MEDS: LEVOFLOXACIN INJ 750 MG/150 ML PREMIX IV SCH (07:30)
[2021-09-23] MEDS: LEVOTHYROXINE 150 MCG TABLET PER TUBE SCH (07:30)
[2021-09-23] MEDS: methylPREDNISolone SOD SUC 40 MG/1 ML VIAL IV SCH ×2 (08:16→21:14)
[2021-09-23] MEDS: LACTULOSE 20 GM/30 ML UDCUP PER TUBE SCH (08:17)
[2021-09-23] MEDS: PREGABALIN 100 MG CAPSULE PO SCH ×3 (08:17→21:14)
[2021-09-23] MEDS: amLODIPine 10 MG TABLET PER TUBE SCH (08:17)
[2021-09-23] MEDS: busPIRone 15 MG TABLET PER TUBE SCH (08:17)
[2021-09-23] MEDS: DORNASE ALFA 2.5 MG/2.5 ML VIAL RESP TX SCH ×2 (08:21→23:30)
[2021-09-23] MEDS: carvediloL 12.5 MG TABLET PO SCH ×2 (09:11→18:05)
[2021-09-23] MEDS: busPIRone 15 MG TABLET PO SCH ×2 (15:03→21:14)
[2021-09-23] MEDS: MORPHINE 2 MG/1 ML SYRINGE IV PRN (18:25)
[2021-09-23] MEDS: PANTOPRAZOLE 40 MG VIAL IV SCH (21:13)
[2021-09-23] MEDS: ENOXAPARIN 40 MG/0.4 ML SYRINGE SUBCUT SCH (21:14)
[2021-09-24] MEDS: ALBUTEROL 2.5 MG/3 ML NEB RESP TX SCH ×3 (01:00→19:10)
[2021-09-24] MEDS: MEROPENEM 500 MG in SODIUM CHLORIDE 0.9% 100 ML IV SCH ×2 (04:16→09:39)
[2021-09-24] MEDS: LEVOFLOXACIN INJ 750 MG/150 ML PREMIX IV SCH (04:55)
[2021-09-24] MEDS: LEVOTHYROXINE 150 MCG TABLET PER TUBE SCH (05:31)
[2021-09-24 06:54] LABS: Hematocrit 47.5 VOL% (35.7-47.0); Hemoglobin 14.6 GM/DL (12.0-16.0); Immature Granulocytes % 0.7 %; Immature Granulocytes Absolute 0.04 #; Lymphocytes # 0.8 10*3/uL (1.4-4.0); Lymphocytes % 13.3 % (21.3-54.2); Mean Corpuscular HGB Conc 30.7 GM/DL (32-36); Mean Corpuscular Volume 95.6 FL (87-102); Mean Platelet Volume 12.4 FL (9.6-12.0); Platelet Count 206 T/CUMM (130-400); Red Blood Count 4.97 MC/CUMM (3.8-5.5); Red Cell Distribution Width 14.6 % (9.3-17.3)
[2021-09-24] MEDS: DORNASE ALFA 2.5 MG/2.5 ML VIAL RESP TX SCH (07:40)
[2021-09-24] MEDS: methylPREDNISolone SOD SUC 40 MG/1 ML VIAL IV SCH (09:40)
[2021-09-24] MEDS: PREGABALIN 100 MG CAPSULE PO SCH ×3 (09:40→20:52)
[2021-09-24] MEDS: amLODIPine 10 MG TABLET PO SCH (09:40)
[2021-09-24] MEDS: busPIRone 15 MG TABLET PO SCH ×3 (09:40→20:52)
[2021-09-24] MEDS: carvediloL 12.5 MG TABLET PO SCH ×2 (09:40→16:59)
[2021-09-24] MEDS: INSULIN LISPRO 100 UNIT/ML SUBCUT SCH ×4 (09:41→21:39)
[2021-09-24] MEDS: LACTULOSE 20 GM/30 ML UDCUP PO SCH (09:41)
[2021-09-24] MEDS: BUDESONIDE/FORMOTEROL 160-4.5 INHALER 6 GM INH SCH ×2 (14:31→20:53)
[2021-09-24] MEDS: predniSONE 10 MG TABLET PO SCH (14:31)
[2021-09-24] MEDS: ENOXAPARIN 40 MG/0.4 ML SYRINGE SUBCUT SCH (21:38)
[2021-09-24] MEDS: PANTOPRAZOLE 40 MG VIAL IV SCH (21:38)
[2021-09-25] MEDS: ALBUTEROL 2.5 MG/3 ML NEB RESP TX SCH ×5 (01:05→19:32)
[2021-09-25] MEDS: cloNIDine 0.1 MG TABLET PO PRN (02:27)
[2021-09-25] MEDS: LEVOFLOXACIN INJ 750 MG/150 ML PREMIX IV SCH (05:55)
[2021-09-25 06:44] LABS: Calcium 9.2 MG/DL (8.5-10.1); Osmolality,Calculated 289.1 MOS/KG (273-304); Potassium 3.5 MMOL/L (3.5-5.1)
[2021-09-25 06:50] LABS: Basophils % 0.2 % (0.0-0.8); Eosinophils # 0.1 10*3/uL (0.0-0.87); Eosinophils % 0.9 % (0.00-10.9); Hematocrit 46.8 VOL% (35.7-47.0); Hemoglobin 14.5 GM/DL (12.0-16.0); Immature Granulocytes % 0.3 %; Immature Granulocytes Absolute 0.02 #; Lymphocytes # 1.3 10*3/uL (1.4-4.0); Lymphocytes % 20.2 % (21.3-54.2); Mean Corpuscular Volume 95.9 FL (87-102); Mean Platelet Volume 12.6 FL (9.6-12.0); Neutrophils % 64.4 % (38.7-73.9); Platelet Count 188 T/CUMM (130-400); Red Blood Count 4.88 MC/CUMM (3.8-5.5); Red Cell Distribution Width 14.6 % (9.3-17.3); White Blood Count 6.4 T/CUMM (4-12)
[2021-09-25] MEDS: INSULIN LISPRO 100 UNIT/ML SUBCUT SCH ×4 (08:56→21:24)
[2021-09-25] MEDS: amLODIPine 10 MG TABLET PO SCH (08:57)
[2021-09-25] MEDS: LACTULOSE 20 GM/30 ML UDCUP PO SCH (08:57)
[2021-09-25] MEDS: predniSONE 10 MG TABLET PO SCH (08:57)
[2021-09-25] MEDS: carvediloL 12.5 MG TABLET PO SCH ×2 (08:57→17:22)
[2021-09-25] MEDS: LEVOTHYROXINE 150 MCG TABLET PER TUBE SCH (08:57)
[2021-09-25] MEDS: busPIRone 15 MG TABLET PO SCH ×3 (08:57→20:40)
[2021-09-25] MEDS: PREGABALIN 100 MG CAPSULE PO SCH ×3 (08:57→20:40)
[2021-09-25] MEDS: BUDESONIDE/FORMOTEROL 160-4.5 INHALER 6 GM INH SCH ×2 (08:58→20:41)
[2021-09-25] MEDS: LOSARTAN 25 MG TABLET PO SCH (11:56)
[2021-09-25] MEDS: PANTOPRAZOLE 40 MG VIAL IV SCH (21:24)
[2021-09-25] MEDS: ENOXAPARIN 40 MG/0.4 ML SYRINGE SUBCUT SCH (21:24)
[2021-09-26] MEDS: ALBUTEROL 2.5 MG/3 ML NEB RESP TX SCH ×4 (00:44→20:13)
[2021-09-26 05:58] LABS: Calcium 8.9 MG/DL (8.5-10.1); Osmolality,Calculated 283.3 MOS/KG (273-304); Potassium 3.6 MMOL/L (3.5-5.1)
[2021-09-26 06:19] LABS: Basophils % 0.2 % (0.0-0.8); Eosinophils # 0.2 10*3/uL (0.0-0.87); Eosinophils % 4.2 % (0.00-10.9); Hematocrit 45.6 VOL% (35.7-47.0); Hemoglobin 13.9 GM/DL (12.0-16.0); Immature Granulocytes % 0.5 %; Immature Granulocytes Absolute 0.02 #; Lymphocytes # 1.6 10*3/uL (1.4-4.0); Lymphocytes % 36.7 % (21.3-54.2); Mean Corpuscular HGB Conc 30.5 GM/DL (32-36); Mean Corpuscular Volume 95.6 FL (87-102); Mean Platelet Volume 12.3 FL (9.6-12.0); Monocytes % 15.8 % (1.7-12.7); Neutrophils % 42.6 % (38.7-73.9); Platelet Count 159 T/CUMM (130-400); Red Blood Count 4.77 MC/CUMM (3.8-5.5); Red Cell Distribution Width 14.6 % (9.3-17.3); White Blood Count 4.3 T/CUMM (4-12)
[2021-09-26 06:26] LABS: Eosinophils 6 % (0-10); Lymphocytes 34 % (20-55); Platelet Estimate Adequate; Segmented Neutrophils 49 % (50-85); Total Cells Counted 100
[2021-09-26] MEDS: LEVOTHYROXINE 150 MCG TABLET PER TUBE SCH (06:43)
[2021-09-26] MEDS: PREGABALIN 100 MG CAPSULE PO SCH ×3 (08:57→21:35)
[2021-09-26] MEDS: predniSONE 10 MG TABLET PO SCH (08:57)
[2021-09-26] MEDS: carvediloL 12.5 MG TABLET PO SCH ×2 (08:57→16:55)
[2021-09-26] MEDS: INSULIN LISPRO 100 UNIT/ML SUBCUT SCH ×4 (08:57→21:35)
[2021-09-26] MEDS: BUDESONIDE/FORMOTEROL 160-4.5 INHALER 6 GM INH SCH ×2 (08:57→21:41)
[2021-09-26] MEDS: busPIRone 15 MG TABLET PO SCH ×3 (08:57→21:35)
[2021-09-26] MEDS: LOSARTAN 25 MG TABLET PO SCH (08:57)
[2021-09-26] MEDS: amLODIPine 10 MG TABLET PO SCH (08:57)
[2021-09-26] MEDS: LACTULOSE 20 GM/30 ML UDCUP PO SCH (08:58)
[2021-09-26] MEDS: ENOXAPARIN 40 MG/0.4 ML SYRINGE SUBCUT SCH (21:34)
[2021-09-26] MEDS: PANTOPRAZOLE 40 MG VIAL IV SCH (21:35)
[2021-09-27] MEDS: ALBUTEROL 2.5 MG/3 ML NEB RESP TX SCH ×4 (01:43→19:33)
[2021-09-27] MEDS: LEVOTHYROXINE 150 MCG TABLET PER TUBE SCH (06:25)
[2021-09-27 06:30] LABS: Calcium 8.5 MG/DL (8.5-10.1); Osmolality,Calculated 288.8 MOS/KG (273-304); Potassium 3.7 MMOL/L (3.5-5.1)
[2021-09-27 06:36] LABS: Eosinophils # 0.2 10*3/uL (0.0-0.87); Hematocrit 44.1 VOL% (35.7-47.0); Hemoglobin 13.4 GM/DL (12.0-16.0); Immature Granulocytes % 0.2 %; Immature Granulocytes Absolute 0.01 #; Lymphocytes # 1.7 10*3/uL (1.4-4.0); Lymphocytes % 38.3 % (21.3-54.2); Mean Corpuscular HGB Conc 30.4 GM/DL (32-36); Mean Corpuscular Volume 94.8 FL (87-102); Mean Platelet Volume 12.6 FL (9.6-12.0); Neutrophils % 42.5 % (38.7-73.9); Platelet Count 164 T/CUMM (130-400); Red Blood Count 4.65 MC/CUMM (3.8-5.5); Red Cell Distribution Width 14.6 % (9.3-17.3); White Blood Count 4.5 T/CUMM (4-12)
[2021-09-27] MEDS: INSULIN LISPRO 100 UNIT/ML SUBCUT SCH ×4 (08:34→22:00)
[2021-09-27] MEDS: LOSARTAN 25 MG TABLET PO SCH (09:54)
[2021-09-27] MEDS: carvediloL 12.5 MG TABLET PO SCH ×2 (09:54→16:59)
[2021-09-27] MEDS: PREGABALIN 100 MG CAPSULE PO SCH ×3 (09:54→21:47)
[2021-09-27] MEDS: busPIRone 15 MG TABLET PO SCH ×3 (09:54→21:46)
[2021-09-27] MEDS: predniSONE 10 MG TABLET PO SCH (09:54)
[2021-09-27] MEDS: amLODIPine 10 MG TABLET PO SCH (09:54)
[2021-09-27] MEDS: BUDESONIDE/FORMOTEROL 160-4.5 INHALER 6 GM INH SCH (09:55)
[2021-09-27] MEDS: LACTULOSE 20 GM/30 ML UDCUP PO SCH (10:16)
[2021-09-27] MEDS: PANTOPRAZOLE 40 MG VIAL IV SCH (21:46)
[2021-09-27] MEDS: ENOXAPARIN 40 MG/0.4 ML SYRINGE SUBCUT SCH (21:47)
[2021-09-28] MEDS: ALBUTEROL 2.5 MG/3 ML NEB RESP TX SCH ×4 (00:48→20:00)
[2021-09-28] MEDS: BUDESONIDE/FORMOTEROL 160-4.5 INHALER 6 GM INH SCH ×3 (02:26→21:53)
[2021-09-28 07:08] LABS: Potassium 3.5 MMOL/L (3.5-5.1)
[2021-09-28 07:19] LABS: Basophils % 0.2 % (0.0-0.8); Eosinophils # 0.2 10*3/uL (0.0-0.87); Eosinophils % 3.3 % (0.00-10.9); Hematocrit 45.6 VOL% (35.7-47.0); Hemoglobin 13.5 GM/DL (12.0-16.0); Immature Granulocytes % 0.4 %; Immature Granulocytes Absolute 0.02 #; Lymphocytes # 1.5 10*3/uL (1.4-4.0); Lymphocytes % 31.8 % (21.3-54.2); Mean Corpuscular HGB Conc 29.6 GM/DL (32-36); Mean Platelet Volume 12.7 FL (9.6-12.0); Monocytes % 15.4 % (1.7-12.7); Neutrophils % 48.9 % (38.7-73.9); Platelet Count 161 T/CUMM (130-400); Red Cell Distribution Width 14.4 % (9.3-17.3); White Blood Count 4.8 T/CUMM (4-12)
[2021-09-28 07:21] LABS: Anisocytosis Slight; Macrocytosis Slight; Platelet Estimate Normal
[2021-09-28] MEDS: LEVOTHYROXINE 150 MCG TABLET PER TUBE SCH (08:59)
[2021-09-28] MEDS: PREGABALIN 100 MG CAPSULE PO SCH ×3 (10:15→21:51)
[2021-09-28] MEDS: busPIRone 15 MG TABLET PO SCH ×3 (10:15→21:51)
[2021-09-28] MEDS: LOSARTAN 25 MG TABLET PO SCH (10:15)
[2021-09-28] MEDS: predniSONE 10 MG TABLET PO SCH (10:15)
[2021-09-28] MEDS: carvediloL 12.5 MG TABLET PO SCH ×2 (10:15→17:58)
[2021-09-28] MEDS: amLODIPine 10 MG TABLET PO SCH (10:16)
[2021-09-28] MEDS: INSULIN LISPRO 100 UNIT/ML SUBCUT SCH ×4 (10:20→21:53)
[2021-09-28] MEDS: LACTULOSE 20 GM/30 ML UDCUP PO SCH (12:28)
[2021-09-28] MEDS: ENOXAPARIN 40 MG/0.4 ML SYRINGE SUBCUT SCH (21:52)
[2021-09-28] MEDS: PANTOPRAZOLE 40 MG VIAL IV SCH (21:52)
[2021-09-29] MEDS: ALBUTEROL 2.5 MG/3 ML NEB RESP TX SCH ×4 (00:37→20:32)
[2021-09-29] MEDS: LEVOTHYROXINE 150 MCG TABLET PER TUBE SCH (05:39)
[2021-09-29] MEDS: busPIRone 15 MG TABLET PO SCH ×3 (09:44→21:36)
[2021-09-29] MEDS: carvediloL 12.5 MG TABLET PO SCH ×2 (09:44→17:09)
[2021-09-29] MEDS: PREGABALIN 100 MG CAPSULE PO SCH ×3 (09:45→21:36)
[2021-09-29] MEDS: amLODIPine 10 MG TABLET PO SCH (09:45)
[2021-09-29] MEDS: LOSARTAN 25 MG TABLET PO SCH (09:45)
[2021-09-29] MEDS: predniSONE 10 MG TABLET PO SCH (09:45)
[2021-09-29] MEDS: LACTULOSE 20 GM/30 ML UDCUP PO SCH (09:47)
[2021-09-29] MEDS: BUDESONIDE/FORMOTEROL 160-4.5 INHALER 6 GM INH SCH ×2 (09:48→21:36)
[2021-09-29] MEDS: INSULIN LISPRO 100 UNIT/ML SUBCUT SCH ×4 (10:07→21:35)
[2021-09-29] MEDS: ENOXAPARIN 40 MG/0.4 ML SYRINGE SUBCUT SCH (21:36)
[2021-09-29] MEDS: PANTOPRAZOLE 40 MG VIAL IV SCH (21:36)
[2021-09-30] MEDS: ALBUTEROL 2.5 MG/3 ML NEB RESP TX SCH ×4 (01:28→19:50)
[2021-09-30] MEDS: LEVOTHYROXINE 150 MCG TABLET PER TUBE SCH (05:30)
[2021-09-30] MEDS: INSULIN LISPRO 100 UNIT/ML SUBCUT SCH ×4 (08:24→22:03)
[2021-09-30] MEDS: LACTULOSE 20 GM/30 ML UDCUP PO SCH (08:57)
[2021-09-30] MEDS: busPIRone 15 MG TABLET PO SCH ×3 (08:57→22:03)
[2021-09-30] MEDS: LOSARTAN 25 MG TABLET PO SCH (08:57)
[2021-09-30] MEDS: amLODIPine 10 MG TABLET PO SCH (08:58)
[2021-09-30] MEDS: predniSONE 10 MG TABLET PO SCH (08:58)
[2021-09-30] MEDS: carvediloL 12.5 MG TABLET PO SCH ×2 (08:58→16:29)
[2021-09-30] MEDS: PREGABALIN 100 MG CAPSULE PO SCH ×3 (08:58→22:03)
[2021-09-30] MEDS: BUDESONIDE/FORMOTEROL 160-4.5 INHALER 6 GM INH SCH ×2 (08:58→22:05)
[2021-09-30] MEDS: ENOXAPARIN 40 MG/0.4 ML SYRINGE SUBCUT SCH (22:03)
[2021-09-30] MEDS: PANTOPRAZOLE 40 MG VIAL IV SCH (22:04)
[2021-10-01] MEDS: ALBUTEROL 2.5 MG/3 ML NEB RESP TX SCH ×4 (00:17→19:35)
[2021-10-01 05:42] LABS: Potassium 3.3 MMOL/L (3.5-5.1)
[2021-10-01] MEDS: LEVOTHYROXINE 150 MCG TABLET PER TUBE SCH (06:05)
[2021-10-01 06:11] LABS: Basophils % 0.4 % (0.0-0.8); Eosinophils # 0.1 10*3/uL (0.0-0.87); Hematocrit 44.8 VOL% (35.7-47.0); Hemoglobin 13.5 GM/DL (12.0-16.0); Immature Granulocytes % 0.6 %; Immature Granulocytes Absolute 0.03 #; Lymphocytes # 1.6 10*3/uL (1.4-4.0); Lymphocytes % 30.7 % (21.3-54.2); Mean Corpuscular HGB Conc 30.1 GM/DL (32-36); Mean Corpuscular Volume 97.4 FL (87-102); Mean Platelet Volume 12.7 FL (9.6-12.0); Monocytes % 15.7 % (1.7-12.7); Neutrophils % 50.6 % (38.7-73.9); Platelet Count 134 T/CUMM (130-400); Red Cell Distribution Width 14.6 % (9.3-17.3); White Blood Count 5.1 T/CUMM (4-12)
[2021-10-01 06:31] LABS: Osmolality,Calculated 281.1 MOS/KG (273-304)
[2021-10-01 07:40] LABS: Eosinophils 1 % (0-10); Lymphocytes 24 % (20-55); Platelet Estimate Adequate; Polychromasia Slight; Reactive Lymphocytes Few; Segmented Neutrophils 64 % (50-85); Total Cells Counted 100
[2021-10-01] MEDS ORDERED: POTASSIUM CHLORIDE 20 MEQ TABLET PO PRN (08:13)
[2021-10-01] MEDS: carvediloL 12.5 MG TABLET PO SCH ×2 (09:00→17:07)
[2021-10-01] MEDS: predniSONE 10 MG TABLET PO SCH (09:29)
[2021-10-01] MEDS: LOSARTAN 25 MG TABLET PO SCH (09:29)
[2021-10-01] MEDS: PREGABALIN 100 MG CAPSULE PO SCH ×3 (09:29→22:46)
[2021-10-01] MEDS: amLODIPine 10 MG TABLET PO SCH (09:29)
[2021-10-01] MEDS: BUDESONIDE/FORMOTEROL 160-4.5 INHALER 6 GM INH SCH ×2 (09:30→22:47)
[2021-10-01] MEDS: LACTULOSE 20 GM/30 ML UDCUP PO SCH (09:30)
[2021-10-01] MEDS: busPIRone 15 MG TABLET PO SCH ×3 (09:35→22:46)
[2021-10-01] MEDS: INSULIN LISPRO 100 UNIT/ML SUBCUT SCH ×4 (10:05→22:50)
[2021-10-01] MEDS: PANTOPRAZOLE 40 MG VIAL IV SCH (22:46)
[2021-10-01] MEDS: ENOXAPARIN 40 MG/0.4 ML SYRINGE SUBCUT SCH (22:46)
[2021-10-02] MEDS: ALBUTEROL 2.5 MG/3 ML NEB RESP TX SCH ×2 (00:49→07:55)
[2021-10-02] MEDS: LEVOTHYROXINE 150 MCG TABLET PER TUBE SCH (05:54)
[2021-10-02 05:58] LABS: Osmolality,Calculated 293.7 MOS/KG (273-304); Potassium 3.4 MMOL/L (3.5-5.1)
[2021-10-02 06:12] LABS: Basophils % 0.2 % (0.0-0.8); Eosinophils # 0.1 10*3/uL (0.0-0.87); Eosinophils % 1.7 % (0.00-10.9); Hematocrit 44.9 VOL% (35.7-47.0); Immature Granulocytes % 0.6 %; Immature Granulocytes Absolute 0.03 #; Lymphocytes # 1.4 10*3/uL (1.4-4.0); Lymphocytes % 30.1 % (21.3-54.2); Mean Corpuscular HGB Conc 29.4 GM/DL (32-36); Mean Corpuscular Volume 99.8 FL (87-102); Mean Platelet Volume 12.6 FL (9.6-12.0); Monocytes % 15.1 % (1.7-12.7); Neutrophils % 52.3 % (38.7-73.9); Platelet Count 139 T/CUMM (130-400); Red Cell Distribution Width 14.5 % (9.3-17.3); White Blood Count 4.7 T/CUMM (4-12)
[2021-10-02 06:15] LABS: Hemoglobin 13.2 GM/DL (12.0-16.0)
[2021-10-02] MEDS: INSULIN LISPRO 100 UNIT/ML SUBCUT SCH ×2 (09:33→13:36)
[2021-10-02] MEDS: LOSARTAN 25 MG TABLET PO SCH (09:34)
[2021-10-02] MEDS: amLODIPine 10 MG TABLET PO SCH (09:34)
[2021-10-02] MEDS: busPIRone 15 MG TABLET PO SCH (09:34)
[2021-10-02] MEDS: LACTULOSE 20 GM/30 ML UDCUP PO SCH (09:34)
[2021-10-02] MEDS: carvediloL 12.5 MG TABLET PO SCH (09:34)
[2021-10-02] MEDS: predniSONE 10 MG TABLET PO SCH (09:34)
[2021-10-02] MEDS: PREGABALIN 100 MG CAPSULE PO SCH (09:34)
[2021-10-02] MEDS: BUDESONIDE/FORMOTEROL 160-4.5 INHALER 6 GM INH SCH (09:40)
[2021-10-02 12:03] VITALS: BP 135/72
[2021-10-03] MEDS ORDERED: POTASSIUM CHLORIDE 20 MEQ TABLET PO SCH (09:00)
== END 2021-10-02 14:26 | DRG 207 ==
LOC: EDBD → EDUNIT# → N.ED 17:47 → N.EDINP 20:46 → SUATTDRO 20:46 → N.ICU 09-18 00:34 → N.3E 09-23 13:13
PROVIDERS: ADMIT Internal Medicine; ATTEND Internal Medicine

== ENCOUNTER 2021-10-10 07:20 | Inpatient (IN) ==
[2021-10-10 08:34] LABS: Basophils % 0.3 % (0.0-0.8); Eosinophils # 0.1 10*3/uL (0.0-0.87); Eosinophils % 1.9 % (0.00-10.9); Hematocrit 46.4 VOL% (35.7-47.0); Hemoglobin 13.9 GM/DL (12.0-16.0); Immature Granulocytes % 0.7 %; Immature Granulocytes Absolute 0.05 #; Lymphocytes # 1.9 10*3/uL (1.4-4.0); Lymphocytes % 26.5 % (21.3-54.2); Mean Corpuscular Volume 98.1 FL (87-102); Mean Platelet Volume 11.9 FL (9.6-12.0); Monocytes % 11.9 % (1.7-12.7); Neutrophils % 58.7 % (38.7-73.9); Platelet Count 132 T/CUMM (130-400); Red Blood Count 4.73 MC/CUMM (3.8-5.5); Red Cell Distribution Width 15.6 % (9.3-17.3); White Blood Count 7.3 T/CUMM (4-12)
[2021-10-10 08:35] LABS: Bilirubin,Total 0.7 MG/DL (0.20-1.00); Calcium 9.5 MG/DL (8.5-10.1); Total Protein 7.1 G/DL (6.4-8.2)
[2021-10-10 08:41] LABS: Potassium 4.4 MMOL/L (3.5-5.1)
[2021-10-10] MEDS ORDERED: DEXTROSE 50% 25 GM/50 ML VIAL IV STA (08:44)
[2021-10-10 08:45] LABS: Osmolality,Calculated 269.8 MOS/KG (273-304)
[2021-10-10 09:21] LABS: ABG Base Excess 9.5 MMOL/L (-2.5-2.5); ABG Oxygen Saturation 88.2 % (95-100); ABG PO2 68.9 MM HG (80-95); ABG TCO2 39.3 MMOL/L (23-27); Allen Test Positive
[2021-10-10 09:24] LABS: ABG PH 7.204 (7.35-7.45)
[2021-10-10] MEDS ORDERED: DEXTROSE 5% NACL 0.45% 1,000 ML IV SCH (10:00)
[2021-10-10 11:17] LABS: Bilirubin,Urine Negative (Negative); Blood, Urine Negative (Negative); Glucose,Urine (UA) Negative (Negative); Ketones,Urine Negative (Negative); Mucus,Urine Occasional /LPF (Occasional); Nitrite,Urine Negative (Negative); Protein,Urine Negative; RBC,Urine <1 /HPF (0-4); Squamous Epithelial Cell,Urine Occasional /HPF (0-10); Urine Appearance CLEAR (Clear); Urine Color Yellow (Yellow); Urine Specific Gravity 1.019 (1.001-1.035)
[2021-10-10 13:34] LABS: ABG Base Excess 9.6 MMOL/L (-2.5-2.5); ABG HCO3 42.9 MMOL/L (20-26); ABG Oxygen Saturation 97.9 % (95-100); ABG TCO2 46.5 MMOL/L (23-27); Allen Test Positive; Pt O2 Delivery Device BIPAP
[2021-10-10 13:39] LABS: ABG PCO2 117.3 MM HG (35-48); ABG PH 7.181 (7.35-7.45)
[2021-10-10] MEDS ORDERED: hydrALAZINE 20 MG/1 ML VIAL IV PRN (13:59)
[2021-10-10] MEDS ORDERED: GLUCAGON 1 MG VIAL IM PRN (14:03)
[2021-10-10] MEDS ORDERED: DEXTROSE 50% 25 GM/50 ML SYRINGE IV PRN (14:03)
[2021-10-10] MEDS ORDERED: ZALEPLON 5 MG CAPSULE PO PRN (14:45)
[2021-10-10] MEDS ORDERED: ALBUTEROL 2.5 MG/3 ML NEB RESP TX PRN (14:46)
[2021-10-10 16:16] LABS: ABG HCO3 42.6 MMOL/L (20-26); ABG PO2 67.3 MM HG (80-95); Allen Test Positive; Pt O2 Delivery Device BIPAP
[2021-10-10 16:17] LABS: ABG PCO2 109.3 MM HG (35-48); ABG PH 7.209 (7.35-7.45)
[2021-10-10] MEDS ORDERED: FUROSEMIDE 40 MG/4 ML VIAL IV ONE (17:10)
[2021-10-10] MEDS: ENOXAPARIN 40 MG/0.4 ML SYRINGE SUBCUT SCH (18:37)
[2021-10-10] MEDS: carvediloL 12.5 MG TABLET PO SCH (18:41)
[2021-10-10] MEDS: COLLAGENASE OINT 30 GM TUBE TOP SCH (18:41)
[2021-10-10] MEDS: methylPREDNISolone SOD SUC 40 MG/1 ML VIAL IV SCH ×2 (18:41→22:57)
[2021-10-10] MEDS: ALBUTEROL/IPRATROPIUM 3 ML NEB RESP TX SCH (19:10)
[2021-10-10] MEDS: BUDESONIDE/FORMOTEROL 160-4.5 INHALER 6 GM INH SCH (22:28)
[2021-10-10] MEDS: AMITRIPTYLINE 10 MG TABLET PO SCH (22:28)
[2021-10-10] MEDS: SIMVASTATIN 20 MG TABLET PO SCH (22:29)
[2021-10-11] MEDS: ALBUTEROL/IPRATROPIUM 3 ML NEB RESP TX SCH ×4 (01:19→20:08)
[2021-10-11 04:18] LABS: ABG Base Excess 12.9 MMOL/L (-2.5-2.5); ABG HCO3 42.3 MMOL/L (20-26); ABG Oxygen Saturation 88.1 % (95-100); ABG PH 7.355 (7.35-7.45); ABG PO2 52.3 MM HG (80-95); ABG TCO2 44.7 MMOL/L (23-27)
[2021-10-11 04:38] LABS: ABG PCO2 77.5 MM HG (35-48)
[2021-10-11 05:30] LABS: Calcium 9.7 MG/DL (8.5-10.1); Osmolality,Calculated 272.7 MOS/KG (273-304); Potassium 5.4 MMOL/L (3.5-5.1)
[2021-10-11] MEDS: LEVOTHYROXINE 150 MCG TABLET PO SCH (06:26)
[2021-10-11] MEDS: methylPREDNISolone SOD SUC 40 MG/1 ML VIAL IV SCH ×2 (06:26→17:30)
[2021-10-11 06:33] LABS: Basophils % 0.1 % (0.0-0.8); Hematocrit 49.7 VOL% (35.7-47.0); Hemoglobin 14.7 GM/DL (12.0-16.0); Immature Granulocytes % 0.6 %; Immature Granulocytes Absolute 0.05 #; Lymphocytes # 0.8 10*3/uL (1.4-4.0); Lymphocytes % 10.1 % (21.3-54.2); Mean Corpuscular HGB Conc 29.6 GM/DL (32-36); Mean Corpuscular Volume 98.8 FL (87-102); Mean Platelet Volume 13.5 FL (9.6-12.0); Monocytes % 1.3 % (1.7-12.7); Neutrophils % 87.9 % (38.7-73.9); Platelet Count 126 T/CUMM (130-400); Red Blood Count 5.03 MC/CUMM (3.8-5.5); Red Cell Distribution Width 14.9 % (9.3-17.3); White Blood Count 7.8 T/CUMM (4-12)
[2021-10-11] MEDS ORDERED: FUROSEMIDE 40 MG/4 ML VIAL IV ONE (07:22)
[2021-10-11] MEDS: carvediloL 12.5 MG TABLET PO SCH ×2 (08:32→17:30)
[2021-10-11] MEDS: ASPIRIN EC 81 MG TABLET PO SCH (08:32)
[2021-10-11] MEDS: CETIRIZINE 10 MG TABLET PO SCH (08:32)
[2021-10-11] MEDS: amLODIPine 10 MG TABLET PO SCH (08:32)
[2021-10-11] MEDS: PANTOPRAZOLE 40 MG VIAL IV SCH (08:33)
[2021-10-11] MEDS ORDERED: LOSARTAN 25 MG TABLET PO SCH (09:00)
[2021-10-11] MEDS ORDERED: SPIRONOLACTONE 50 MG TABLET PO SCH (09:00)
[2021-10-11] MEDS: INSULIN LISPRO 100 UNIT/ML SUBCUT SCH ×3 (12:02→22:16)
[2021-10-11] MEDS: ENOXAPARIN 40 MG/0.4 ML SYRINGE SUBCUT SCH (17:30)
[2021-10-11] MEDS: BUDESONIDE/FORMOTEROL 160-4.5 INHALER 6 GM INH SCH ×2 (18:40→22:14)
[2021-10-11] MEDS: AMITRIPTYLINE 10 MG TABLET PO SCH (22:15)
[2021-10-11] MEDS: SIMVASTATIN 20 MG TABLET PO SCH (22:15)
[2021-10-12] MEDS: methylPREDNISolone SOD SUC 40 MG/1 ML VIAL IV SCH ×4 (00:55→22:47)
[2021-10-12] MEDS: ALBUTEROL/IPRATROPIUM 3 ML NEB RESP TX SCH ×4 (01:30→18:36)
[2021-10-12 06:36] LABS: Basophils % 0.1 % (0.0-0.8); Hematocrit 44.9 VOL% (35.7-47.0); Hemoglobin 14.1 GM/DL (12.0-16.0); Immature Granulocytes % 0.6 %; Immature Granulocytes Absolute 0.05 #; Lymphocytes # 0.9 10*3/uL (1.4-4.0); Lymphocytes % 10.8 % (21.3-54.2); Mean Corpuscular HGB Conc 31.4 GM/DL (32-36); Mean Corpuscular Volume 93.5 FL (87-102); Mean Platelet Volume 12.5 FL (9.6-12.0); NRBC # 0.03 10*3/uL; Neutrophils % 86.5 % (38.7-73.9); Platelet Count 172 T/CUMM (130-400); Red Cell Distribution Width 14.5 % (9.3-17.3); White Blood Count 8.5 T/CUMM (4-12)
[2021-10-12 06:53] LABS: Calcium 9.3 MG/DL (8.5-10.1); Osmolality,Calculated 282.1 MOS/KG (273-304); Potassium 4.3 MMOL/L (3.5-5.1)
[2021-10-12] MEDS: COLLAGENASE OINT 30 GM TUBE TOP SCH ×2 (07:49→08:49)
[2021-10-12] MEDS: INSULIN LISPRO 100 UNIT/ML SUBCUT SCH ×4 (08:42→21:22)
[2021-10-12] MEDS: ASPIRIN EC 81 MG TABLET PO SCH (08:44)
[2021-10-12] MEDS: CETIRIZINE 10 MG TABLET PO SCH (08:44)
[2021-10-12] MEDS: PANTOPRAZOLE 40 MG VIAL IV SCH (08:45)
[2021-10-12] MEDS: LEVOTHYROXINE 150 MCG TABLET PO SCH (08:45)
[2021-10-12] MEDS: carvediloL 12.5 MG TABLET PO SCH ×2 (08:45→17:37)
[2021-10-12] MEDS: amLODIPine 10 MG TABLET PO SCH (08:45)
[2021-10-12] MEDS: BUDESONIDE/FORMOTEROL 160-4.5 INHALER 6 GM INH SCH ×2 (08:48→22:37)
[2021-10-12] MEDS: ENOXAPARIN 40 MG/0.4 ML SYRINGE SUBCUT SCH (15:35)
[2021-10-12] MEDS: SIMVASTATIN 20 MG TABLET PO SCH (21:20)
[2021-10-12] MEDS: AMITRIPTYLINE 10 MG TABLET PO SCH (21:21)
[2021-10-13] MEDS: ALBUTEROL/IPRATROPIUM 3 ML NEB RESP TX SCH ×4 (01:00→20:02)
[2021-10-13] MEDS: LEVOTHYROXINE 150 MCG TABLET PO SCH (06:57)
[2021-10-13] MEDS: INSULIN LISPRO 100 UNIT/ML SUBCUT SCH ×4 (09:59→21:30)
[2021-10-13] MEDS: PANTOPRAZOLE 40 MG VIAL IV SCH (10:00)
[2021-10-13] MEDS: INSULIN GLARGINE 100 UNIT/ML SUBCUT SCH (10:00)
[2021-10-13] MEDS: methylPREDNISolone SOD SUC 40 MG/1 ML VIAL IV SCH ×3 (10:00→21:29)
[2021-10-13] MEDS: BUDESONIDE/FORMOTEROL 160-4.5 INHALER 6 GM INH SCH ×2 (10:01→21:29)
[2021-10-13] MEDS: COLLAGENASE OINT 30 GM TUBE TOP SCH (10:01)
[2021-10-13] MEDS: ASPIRIN EC 81 MG TABLET PO SCH (10:01)
[2021-10-13] MEDS: amLODIPine 10 MG TABLET PO SCH (10:01)
[2021-10-13] MEDS: carvediloL 12.5 MG TABLET PO SCH ×2 (10:01→17:02)
[2021-10-13] MEDS: CETIRIZINE 10 MG TABLET PO SCH (10:01)
[2021-10-13] MEDS ORDERED: NON-FORMULARY MEDICATION (Liraglutide [Victoza 3-Pak] 1.8 MG) SUBCUT SCH (12:00)
[2021-10-13] MEDS: POLYETHYLENE GLYCOL POWDER 17 GM PACK PO SCH (12:41)
[2021-10-13] MEDS: ENOXAPARIN 40 MG/0.4 ML SYRINGE SUBCUT SCH (16:04)
[2021-10-13] MEDS: SIMVASTATIN 20 MG TABLET PO SCH (21:28)
[2021-10-13] MEDS: AMITRIPTYLINE 10 MG TABLET PO SCH (21:28)
[2021-10-14] MEDS: ALBUTEROL/IPRATROPIUM 3 ML NEB RESP TX SCH ×4 (01:10→19:44)
[2021-10-14 05:44] LABS: Basophils % 0.1 % (0.0-0.8); Hematocrit 46.2 VOL% (35.7-47.0); Hemoglobin 14.3 GM/DL (12.0-16.0); Immature Granulocytes % 1.3 %; Immature Granulocytes Absolute 0.12 #; Lymphocytes # 0.7 10*3/uL (1.4-4.0); Lymphocytes % 7.3 % (21.3-54.2); Mean Corpuscular Volume 93.3 FL (87-102); Mean Platelet Volume 11.7 FL (9.6-12.0); Neutrophils % 87.3 % (38.7-73.9); Platelet Count 207 T/CUMM (130-400); Red Blood Count 4.95 MC/CUMM (3.8-5.5); Red Cell Distribution Width 14.3 % (9.3-17.3); White Blood Count 8.9 T/CUMM (4-12)
[2021-10-14 06:08] LABS: Calcium 9.5 MG/DL (8.5-10.1); Osmolality,Calculated 279.2 MOS/KG (273-304); Potassium 4.1 MMOL/L (3.5-5.1)
[2021-10-14] MEDS: LEVOTHYROXINE 150 MCG TABLET PO SCH (06:24)
[2021-10-14] MEDS ORDERED: methylPREDNISolone SOD SUC 40 MG/1 ML VIAL IV SCH (09:00)
[2021-10-14] MEDS: CETIRIZINE 10 MG TABLET PO SCH (09:38)
[2021-10-14] MEDS: Liraglutide [Victoza 3-Pak] 1.8 MG SUBCUT SCH (09:38)
[2021-10-14] MEDS: amLODIPine 10 MG TABLET PO SCH (09:38)
[2021-10-14] MEDS: PANTOPRAZOLE 40 MG VIAL IV SCH (09:38)
[2021-10-14] MEDS: INSULIN GLARGINE 100 UNIT/ML SUBCUT SCH (09:38)
[2021-10-14] MEDS: ASPIRIN EC 81 MG TABLET PO SCH (09:38)
[2021-10-14] MEDS: carvediloL 12.5 MG TABLET PO SCH ×2 (09:38→17:00)
[2021-10-14] MEDS: INSULIN LISPRO 100 UNIT/ML SUBCUT SCH ×4 (09:38→21:26)
[2021-10-14] MEDS: POLYETHYLENE GLYCOL POWDER 17 GM PACK PO SCH (09:38)
[2021-10-14] MEDS: BUDESONIDE/FORMOTEROL 160-4.5 INHALER 6 GM INH SCH ×2 (09:39→21:21)
[2021-10-14] MEDS: COLLAGENASE OINT 30 GM TUBE TOP SCH (09:45)
[2021-10-14] MEDS: methylPREDNISolone SOD SUC 40 MG/1 ML VIAL IV SCH (11:00)
[2021-10-14] MEDS: ENOXAPARIN 40 MG/0.4 ML SYRINGE SUBCUT SCH (15:30)
[2021-10-14] MEDS: AMITRIPTYLINE 10 MG TABLET PO SCH (21:21)
[2021-10-14] MEDS: SIMVASTATIN 20 MG TABLET PO SCH (21:21)
[2021-10-15] MEDS: ALBUTEROL/IPRATROPIUM 3 ML NEB RESP TX SCH ×4 (02:05→20:07)
[2021-10-15] MEDS: LEVOTHYROXINE 150 MCG TABLET PO SCH (05:28)
[2021-10-15] MEDS: ASPIRIN EC 81 MG TABLET PO SCH (09:28)
[2021-10-15] MEDS: amLODIPine 10 MG TABLET PO SCH (09:28)
[2021-10-15] MEDS: INSULIN GLARGINE 100 UNIT/ML SUBCUT SCH (09:28)
[2021-10-15] MEDS: predniSONE 20 MG TABLET PO SCH (09:28)
[2021-10-15] MEDS: CETIRIZINE 10 MG TABLET PO SCH (09:28)
[2021-10-15] MEDS: POLYETHYLENE GLYCOL POWDER 17 GM PACK PO SCH (09:28)
[2021-10-15] MEDS: INSULIN LISPRO 100 UNIT/ML SUBCUT SCH ×4 (09:29→21:23)
[2021-10-15] MEDS: carvediloL 12.5 MG TABLET PO SCH ×2 (09:29→17:03)
[2021-10-15] MEDS: PANTOPRAZOLE 40 MG VIAL IV SCH (09:29)
[2021-10-15] MEDS: BUDESONIDE/FORMOTEROL 160-4.5 INHALER 6 GM INH SCH ×2 (09:30→21:26)
[2021-10-15] MEDS: COLLAGENASE OINT 30 GM TUBE TOP SCH (09:30)
[2021-10-15] MEDS: Liraglutide [Victoza 3-Pak] 1.8 MG SUBCUT SCH (09:36)
[2021-10-15] MEDS: ENOXAPARIN 40 MG/0.4 ML SYRINGE SUBCUT SCH (17:02)
[2021-10-15] MEDS: SIMVASTATIN 20 MG TABLET PO SCH (21:22)
[2021-10-15] MEDS: AMITRIPTYLINE 10 MG TABLET PO SCH (21:22)
[2021-10-16] MEDS ORDERED: DEXTROSE 10% 250 ML BAG IV PRN (01:16)
[2021-10-16] MEDS: ALBUTEROL/IPRATROPIUM 3 ML NEB RESP TX SCH ×2 (02:06→07:08)
[2021-10-16] MEDS: LEVOTHYROXINE 150 MCG TABLET PO SCH (05:55)
[2021-10-16] MEDS: INSULIN LISPRO 100 UNIT/ML SUBCUT SCH ×2 (08:09→11:47)
[2021-10-16] MEDS: CETIRIZINE 10 MG TABLET PO SCH (08:19)
[2021-10-16] MEDS: ASPIRIN EC 81 MG TABLET PO SCH (08:19)
[2021-10-16] MEDS: PANTOPRAZOLE 40 MG VIAL IV SCH (08:19)
[2021-10-16] MEDS: carvediloL 12.5 MG TABLET PO SCH (08:19)
[2021-10-16] MEDS: predniSONE 20 MG TABLET PO SCH (08:20)
[2021-10-16] MEDS: POLYETHYLENE GLYCOL POWDER 17 GM PACK PO SCH (08:20)
[2021-10-16] MEDS: BUDESONIDE/FORMOTEROL 160-4.5 INHALER 6 GM INH SCH (08:22)
[2021-10-16] MEDS: COLLAGENASE OINT 30 GM TUBE TOP SCH (08:22)
[2021-10-16] MEDS: amLODIPine 10 MG TABLET PO SCH (08:23)
[2021-10-16] MEDS: INSULIN GLARGINE 100 UNIT/ML SUBCUT SCH (08:25)
[2021-10-16] MEDS: Liraglutide [Victoza 3-Pak] 1.8 MG SUBCUT SCH (08:26)
[2021-10-16 12:02] VITALS: BP 126/75
== END 2021-10-16 13:29 | disposition swing bed (61) | DRG 189 ==
LOC: EDBD → EDUNIT# → N.ED 07:20 → SUATTDRO 10:29 → N.EDINP 10:29 → N.ICU 15:04 → N.EDINP 15:06 → N.ICU 15:09 → N.5E 10-13 18:26
PROVIDERS: ADMIT Internal Medicine; ATTEND Internal Medicine